=== PATIENT | male | born 1975 | race Caucasian/White ===

== ENCOUNTER 2024-05-14 22:01 | Emergency (ER) | payer BC, SELFPAY ==
[2024-05-14 22:37] VITALS: BP 156/88; PULSE 110; TEMP 37; O2SAT 97; BMI 30.9
[2024-05-14 23:36] LABS: Internal Control Within Normal Limits; SARS-CoV-2 Ag POSITIVE (NEGATIVE)
[2024-05-14 23:38] VITALS: BP 147/90; PULSE 93; O2SAT 97
[2024-05-14 23:39] VITALS: O2SAT 97
[2024-05-14 23:47] LABS: Influenza Virus A Antigen Negative; Influenza Virus B Antigen Negative; Internal Control Within Normal Limits
--- NOTE | 2024-05-15 | ED_ITS ---
HPI - URI/Sore Throat General Chief Complaint: Upper Respiratory Infection Stated Complaint: HEAD COLD, RUNNY NOSE, CHILLS Time Seen by Provider: 05/14/24 23:17 Source: patient Limitations: no limitations History of Present Illness HPI Narrative: This 48-year-old male, non-smoker, with a history of asthma presents for evaluation 2 days cough, runny nose, chills. Patient and his are visiting from [place]. He denies any chest pain or shortness of breath. He has been taking Mucinex which he feels has been helping him. He has no nausea vomiting or diarrhea. He denies any specific body aches. He has been vaccinated against COVID-19 several times and has had COVID twice in the past. Related Data Home Medications ?Medication ?Instructions ?Recorded ?Confirmed albuterol sulfate 90 mcg/actuation inhalation 05/14/24 aerosol inhaler deucravacitinib 6 mg tablet 6 mg PO DAILY 05/14/24 05/14/24 (Sotyktu) fluticasone furoate 200 inhalation 05/14/24 mcg-vilanterol 25 mcg/dose inhalation powder (Breo Ellipta) hydroxyzine HCl 25 mg tablet mg 05/14/24 Allergies Allergy/AdvReac Type Severity Reaction Status Date / Time No Known Drug Allergies Allergy Verified 05/14/24 22:39 Review of Systems ROS Status of ROS 10 or more systems reviewed and unremark able except as noted in history and below Exam Narrative Exam Narrative: Vital signs and Nursing Notes reviewed: Patient is afebrile with a normal pulse, blood pressure is mildly elevated at 147/90, he is not hypoxic with pulse ox of 97% on room air General: Awake, alert, oriented, no acute distress, lying comfortably on the stretcher HEENT: Normocephalic atraumatic Neck: Supple, no meningeal signs, no anterior or posterior cervical lymphadenopathy Chest: Lungs are clear to auscultation with good air entry, there is no wheezing rhonchi or rales appreciated no accessory muscle use, patient is speaking in complete sentences-no chest wall tenderness to palpation CVS: Regular rate and rhythm S1-S2, no murmurs rubs or gallops, pulses are brisk and equal bilaterally Skin: Normal in appearance without rash,pallor, petechiae or purpura Neuro: No focal deficits Constitutional Vital Signs, click to edit/add: Last Vital Signs Temp 98.6 F 05/14/24 22:37 Pulse 93 H 05/14/24 23:38 Resp 18 05/14/24 23:38 BP 147/90 H 05/14/24 23:38 Pulse Ox 97 05/14/24 23:39 O2 Del Method Room Air 05/14/24 23:39 Course Vital Signs Vital signs: Vital Signs Temperature 98.6 F 05/14/24 22:37 Pulse Rate 110 H 05/14/24 22:37 Respiratory Rate 16 05/14/24 22:37 Blood Pressure 156/88 H 05/14/24 22:37 Pulse Oximetry 97 05/14/24 22:37 Oxygen Delivery Method Room Air 05/14/24 22:37 Temperature 98.6 F 05/14/24 22:37 Pulse Rate 93 H 05/14/24 23:38 Respiratory Rate 18 05/14/24 23:38 Blood Pressure 147/90 H 05/14/24 23:38 Pulse Oximetry 97 05/14/24 23:39 Oxygen Delivery Method Room Air 05/14/24 23:39 MDM - URI/Sore Throat MDM Narrative Medical decision making narrative: This 48-year-old male with a history of asthma presents for evaluation of 2 days of cough, runny nose, chills. His physical exam is benign. Vital signs are stable. He is not hypoxic. His lungs are clear with no wheezing rhonchi or rales. He tested positive for COVID-19. He has been vaccinated several times in the past and has had COVID twice in the past. I discussed treatment options with him. He is currently using [id number] Mucinex. Due to his history of asthma I offered him a prescription for prednisone. He is in agreement with this plan. He will also be given a prescription for Paxlovid due to his history of asthma. I encouraged the patient to quarantine away from his mother who is currently visiting who is elderly and has chronic health conditions. Patient and his are in agreement with this plan. Lab Data Labs: Lab Results 05/14/24 Range/Units 22:40 Influenza Type A Ag Negative Influenza Type B Ag Negative SARS-CoV-2 Ag (CV2AG) Positive A (NEGATIVE) Discharge Plan Discharge Stand Alone Forms: Portal Instructions Chief Complaint: Upper Respiratory Infection Clinical Impression: COVID-19 Patient Disposition: Home, Self-Care Time of Disposition Decision: 23:58 Prescriptions / Home Meds: No Action hydroxyzine HCl 25 mg tablet fluticasone furoate-vilanterol [Breo Ellipta] 200-25 mcg/dose blister with device INHALATION Sotyktu 6 mg tablet 6 mg PO DAILY albuterol sulfate 90 mcg/actuation HFA aerosol inhaler INHALATION Print Language: Citizen Of [place] Instructions: COVID-19 and Chronic Health Conditions (ED), How to Recover from COVID-19 at Home (ED) Referrals: Physician,Non-Staff, MD [Primary Care Provider] - 1 week
== END 2024-05-15 00:05 | disposition home or self-care (01) ==
PROVIDERS: Emergency Provider Emergency Medicine
DX: U07.1 COVID-19 (principal)
CPT/HCPCS: 87804; 87811; 99283